=== PATIENT | female | born 1940 | race Caucasian/White ===

== ENCOUNTER 2024-06-30 14:10 | Outpatient (REF) | payer MEDICARE, SELFPAY ==
--- NOTE | ~2024-06-30 | CT_ITS ---
EXAMINATION: CT ANGIOGRAM CHEST CLINICAL INFORMATION: Aortic dilatation COMPARISON: None. TECHNIQUE: Multiple axial images were obtained through the chest after the administration of 70 mL of intravenous Omnipaque. Images were evaluated on independent dedicated 3-D workstation and 3-D images were reconstructed with concurrent radiologist supervision and subsequently interpreted. This CT examination was performed using dose optimization techniques as appropriate, variously including the following: *Automated exposure control. *Adjustment of mA and/or kV according to patient size (this includes techniques or standardized protocols for targeted exams where dose is matched to indication/reason for exam, i.e., extremities or head). *Use of iterative reconstruction technique. DLP: 114 mGy-cm. FINDINGS: VASCULAR: Thoracic Aorta: The ascending aorta is enlarged measuring 4.8 x 4.6 cm in the midportion. The left vertebral artery arises directly from the aortic arch. The descending thoracic aorta is normal in caliber. Subclavian Arteries: Patent and normal in caliber Carotid and Vertebral Arteries: Patent and normal in caliber Abdominal Aorta: Normal in caliber Pulmonary arteries: Patent, normal caliber without evidence of large, central pulmonary embolus All vascular measurements obtained from 3-D reconstructed images are detailed in PACS. NON-VASCULAR: Lungs: Mucous plugging and atelectasis in the right middle lobe. Mediastinum: The mediastinum is normal. Central vascular structures are unremarkable. No hilar or mediastinal lymphadenopathy. Pericardium/Pleura: There is no significant effusion. No pleural mass or thickening. Chest Wall/Axilla: Unremarkable. Upper Abdomen: Unremarkable Osseous Structures: Unremarkable. CT/CT angio chest aorta IMPRESSION: 1. The ascending aorta is enlarged measuring 4.8 x 4.6 cm in diameter. 2. Mucus plugging and atelectasis in the right middle lobe. The can be seen in the setting of infection or chronic aspiration.
[2024-06-30] MEDS: iohexoL 350 MG/ML 100 ML INFUS..BTL IV (14:55)
[2024-07-01 10:16] LABS: Creatinine POC 0.6 mg/dL (0.5-1.4); GFR POC 57
== END 2024-06-30 14:11 | disposition home or self-care (01) ==
LOC: HO.CT 14:10
PROVIDERS: Visit Provider Nurse Practitioner Acute Care
DX: I77.810 Thoracic aortic ectasia (principal)
CPT/HCPCS: 71275; 82565; Q9967